=== PATIENT | female | born 1990 | race Hispanic/Latino ===

== ENCOUNTER 2018-12-09 03:52 | Inpatient (IN) | payer OTHER ==
--- OUTSIDE RECORDS SUMMARY | 2018-12-09 04:11 | XMS REPORT ---
:1990 [facility] [place] [address] Care Team Providers Name Role Phone Unavailable Unavailable Unavailable Problems This patient has no known problems. Allergies, Adverse Reactions, Alerts This patient has no known allergies or adverse reactions. Medications This patient has no known medications.
[2018-12-09] MEDS ORDERED: PENICILLIN 5 MU in NA CHLORIDE 0.9% 100 ML IV ONE (05:00)
[2018-12-09] MEDS ORDERED: BUTORPHANOL 1 MG/ML INJ IV PRN (05:00)
[2018-12-09] MEDS ORDERED: OXYTOCIN/LR 20 UNIT/1,000 ML BAG IV SCH ×2 (05:00→12:00)
[2018-12-09] MEDS ORDERED: Ringers Lactate 1,000 ML IV SCH (05:00)
[2018-12-09] MEDS ORDERED: CARBOPROST TROME 250 MCG/ML IM PRN (05:00)
[2018-12-09] MEDS ORDERED: METHYLERGONOVINE 0.2MG/ML AMP IM PRN (05:00)
[2018-12-09] MEDS ORDERED: PROMETHAZINE 25 MG/ML VIAL IM PRN (05:00)
[2018-12-09] MEDS ORDERED: Ringers Lactate 1,000 ML IV PRN (05:00)
[2018-12-09 05:40] LABS: RPR Titer ND
[2018-12-09 05:45] LABS: Urine Appearance TURBID; Urine Bilirubin NEGATIVE (NEG); Urine Blood TRACE (NEG); Urine Color YELLOW; Urine Glucose NEGATIVE (NEG); Urine Protein NEGATIVE (NEG); Urine pH 6.5 (5.0-7.0)
[2018-12-09 05:45] LABS: Absolute Lymphocytes (CBC) 1.7 K/uL (0.7-4.9); Absolute Monocytes 0.4 K/uL (0.1-1.3); Absolute Neutrophil 6.2 K/uL (1.8-8.0); Basophils % 0.3 % (0-1.3); Eosinophils % 1.8 % (0-4.4); Lymphocytes % 20.2 % (15.3-44.8); MPV 9.4 fL (7.6-11.3); Monocytes % 4.8 % (3.3-12.3); RBC Red Blood Cell Count 4.71 M/uL (3.86-4.86)
[2018-12-09 05:48] LABS: Urine Microscopic Reflex ORDER UMIC
[2018-12-09 05:57] VITALS: BMI 26.9
[2018-12-09 06:02] LABS: Urine Bacteria >50 /HPF (<20); Urine Culture Reflex Order NOT NEEDED; Urine RBC <5 /HPF (NONE SEEN)
[2018-12-09 08:13] LABS: Anisocytosis 2+; Blood Morphology Comment NOTED (NOT SEEN); Hypochromasia 2+; Platelet Estimate ADEQ; Urine White Blood Cell Casts OK
[2018-12-09] MEDS ORDERED: PENICILLIN 2.5 MU in NA CHLORIDE 0.9% 100 ML IV SCH (09:00)
[2018-12-09] MEDS ORDERED: LIDOCAINE 1% MPF 30 ML VIAL ONE (11:54)
[2018-12-09] MEDS ORDERED: BISACODYL 10 MG RECTAL SUPP RECT PRN (11:55)
[2018-12-09] MEDS ORDERED: DIPHENHYDRAMINE 25 MG TAB/CAP PO PRN (11:55)
[2018-12-09] MEDS ORDERED: IBUPROFEN 200 MG TAB PO PRN (11:55)
[2018-12-09] MEDS ORDERED: DOCUSATE NA/SENNA CONC 1 TAB PO PRN (11:55)
[2018-12-09] MEDS ORDERED: ACETAMINOPHEN 500 MG TAB PO PRN (11:55)
[2018-12-09] MEDS ORDERED: Oxycodone HCl/Acetaminophen 1 TAB TAB PO PRN ×2 (11:55)
--- NOTE | 2018-12-09 13:54 | PREOPHP ---
Date of Admission: 12/09/2018 This is a 28-year-old 3, para 2, 39 weeks gestation, rh positive, immune to Rubella. Positiv e beta strep screen. She has received her first dose of penicillin. 3 cm, 50% effaced, -1 station. Rupture of membranes, clear fluid. Admission talk given. Anticipate delivery sometime later today. ELAINA/ANTELMO Voice ID: [id number]
[2018-12-09] MEDS: METHYLERGONOVINE 0.2 MG TAB PO PRN ×3 (13:59→22:25)
--- NOTE | 2018-12-09 14:15 | PN ---
The patient is phylicia regularly. FHTs normal with good reactivity. The patient is 4 cm, 60% ef faced, vertex, almost 0 station. Starting to make good progress. ELAINA/ANTELMO Voice ID: [id number] Report ID: [id number]
--- NOTE | 2018-12-09 14:36 | OP ---
Surgeon: Tim Fontana MD A 28-year-old 3, para 2, 39 weeks gestation, 2.5 to 3 cm on admission. Rupture of membranes. Stadol 1 mg IV during the labor. After achieving 4 cm, went rapidly to complete. Second stage of 10 minutes or less. Spontaneous vaginal delivery of an estimated 7-pound male , Apgars 9 and 9 . No episiotomy. No laceration. Schultze delivery of the placenta, which was inspected and noted t o be intact. Uterus mildly hypotonic, 0.2 mg of Methergine plus IV drip Pitocin and massage. Estima florencio blood loss 400 cc. The patient is Rh positive, immune to Rubella. Received 2 doses of penicilli n during her labor. Final Diagnoses: 1.Term intrauterine 39 weeks. 2.Vaginal delivery. 3.Penicillin prophylaxis. 4.Mild uterine hypotonus. ELAINA/ANTELMO Voice ID: [id number] Report ID: [id number]
[2018-12-10] MEDS: METHYLERGONOVINE 0.2 MG TAB PO PRN (02:30)
[2018-12-10 05:04] VITALS: TEMP 97.1
[2018-12-10 05:08] LABS: RPR (Rapid Plasma Reagin) NON-REACT (NON-REACT)
[2018-12-10 07:06] VITALS: BP 114/59
--- NOTE | 2018-12-10 08:51 | DS ---
Hospital Course: A 28-year-old 3, para 2, 40 weeks 2 days, gestational diabetic. Not compli ant. Was scheduled for induction, but came in active labor. Received epidural anesthesia during the first stage of labor. Delivered quickly of an 8-pound 14-ounce male , Apgars 9 and 9. No epi siotomy. Small first-degree laceration, repaired with 2-0 chromic. Schultze delivery of the placent a, which was inspected and noted be intact and normal. Less than 300 cc blood loss. Rh positive, im mune to Rubella. Negative beta strep screen. ; afebrile, ambulating and voiding. Lochia is normal. No post epidural problems. She has had her Tdap immunization during her . Dism issed to return to my office in 6 weeks for followup, to report any temperature elevation of 100 degr ees or greater, severe pain, heavy bleeding, or any other type of abnormalities. Dismissed with tram adol, although she may elect to take Motrin instead. Final Diagnoses: Intrauterine gestation, 40 weeks 2 days, gestational diabetes, vaginal delivery, ep idural anesthesia. ELAINA/ANTELMO Voice ID: [id number] Report ID: [id number]
--- NOTE | 2018-12-11 11:39 | DS ---
Hospital Course: This is a 28-year-old 3, para 2 at 39 weeks gestation, delivered a 7-pound 2-ounce male , Apgars 9 and 9. No episiotomy. No laceration. Mild uterine hypertonicity afte r Irinae delivery of the placenta, which was inspected and noted to be intact and normal. Methergi ne 0.2 mg as well as IV drip Pitocin and massage. Estimated blood loss 400 cc. Penicillin prophylax is x2 during the labor. , afebrile, ambulating, and voiding. Lochia is normal. Full dism issal instructions given. She has had her Tdap immunizations given. Tramadol for analgesia, althoug h she may elect to take Motrin instead. Final Diagnoses: Term intrauterine , 39 weeks, vaginal delivery. Mild uterine hypertonicit y. Penicillin prophylaxis. ELAINA/STACEYL Voice ID: [id number] Report ID: [id number]
[2018-12-11 12:59] LABS: HBsAG Nonreactive (Nonreactive)
== END 2018-12-10 12:15 | disposition home or self-care (01) | DRG 807 ==
LOC: 2ND-WC 04:08
PROVIDERS: ADMIT Specialist; ATTEND Specialist
PROC: 10E0XZZ Delivery of Products of Conception, External Approach (ICD-10-PCS; principal; 2018-12-09)
PROC: 10907ZC Drainage of Amniotic Fluid, Therapeutic from Products of Conception, Via Natural or Artificial Opening (ICD-10-PCS; 2018-12-09)
DX: O62.2 Other uterine inertia (principal); Z37.0 Single live birth; O99.824 Streptococcus B carrier state complicating childbirth; Z3A.39 39 weeks gestation of pregnancy
CPT/HCPCS: 36415; 81003; 81015; 85025; 86592; 86901; 87340; 90471; 90715; 96372; J0595; J2210; J2550; J2590